=== PATIENT | male | born 1930 | race African-American/Black ===

== ENCOUNTER → 2019-07-12 | Emergency (ER) | payer MEDICARE, MEDICAID ==
[~2019-07-12] VITALS: Ht 172.7 cm; Wt 74.8 kg
[~2019-07-12] MED LIST: cloNIDine HCL 0.1 MG TAB PO ONE
[2019-07-12 16:37] VITALS: BP 129/81
== END | disposition home or self-care (01) ==
LOC: ER 15:19
DX: I16.0 Hypertensive urgency (principal); Z98.890 Other specified postprocedural states
CPT/HCPCS: 93005